=== PATIENT | female | born 1980 | race Hispanic/Latino ===

== ENCOUNTER 2022-01-10 09:24 | Emergency (ER) | payer OTHER ==
[~2022-01-10] VITALS: Ht 170.2 cm; Wt 65.8 kg
[2022-01-10] MEDS ORDERED: GABAPENTIN 300 MG CAPSULE PO SCH (10:00)
[2022-01-10] MEDS ORDERED: IBUPROFEN 800 MG TAB PO ONE (10:00)
[2022-01-10] MEDS ORDERED: CYCLOBENZAPRINE HCL 10 MG TABLET PO ONE (10:00)
[2022-01-10] MEDS ORDERED: IBUP-1493 PO (12:12)
[2022-01-10] MEDS ORDERED: CYCL-309 PO (12:12)
[2022-01-10 12:30] VITALS: BP 115/69
== END 2022-01-10 12:35 | disposition home or self-care (01) ==
LOC: EDH 09:24
DX: M54.50 Low back pain, unspecified (principal); Z98.890 Other specified postprocedural states; V49.49XA Driver injured in collision with other motor vehicles in traffic accident, initial encounter; Y93.89 Activity, other specified; Y92.413 State road as the place of occurrence of the external cause; Y99.8 Other external cause status
CPT/HCPCS: 72100; 81025